=== PATIENT | female | born 1995 | race Caucasian/White ===

== ENCOUNTER 2019-06-24 14:35 | Emergency (ER) | payer OTHER ==
[2019-06-24] MEDS ORDERED: NORMAL SALINE 1000 ML 1,000 ML IV ONE (14:56)
--- NOTE | 2019-06-24 14:57 | ER Document Report ---
ED Medical Screen (RME) - General Stated Complaint: VAGINAL BLEEDING Time Seen by Provider: 06/24/19 14:51 Mode of Arrival: Ambulatory Information source: Patient Notes: Patient states that she had nausea vomiting and diarrhea this morning and then had vaginal bleeding with clots. Patient states that this would have been her first . Patient reports the bleeding has decreased and she is only spotting at this time. Patient does complain of feeling dizzy. Patient does report lower pelvic cramping. I have greeted and performed a rapid initial assessment of this patient. A comprehensive ED assessment and evaluation of the patient, analysis of test results and completion of the medical decision making process will be conducted by additional ED providers. - Related Data Allergies/Adverse Reactions: Penicillins Allergy (Verified 06/24/19 14:50) Physical Exam - Vital signs Vitals: Temp Pulse Resp BP Pulse Ox 99.2 F 108 H 14 130/72 H 97 06/24/19 14:39 06/24/19 14:39 06/24/19 14:39 06/24/19 14:39 06/24/19 14:39 - Abdominal Tenderness: Tender - Lower pelvic Course - Vital Signs Vital signs: Temp Pulse Resp BP Pulse Ox 99.2 F 108 H 14 130/72 H 97 06/24/19 14:39 06/24/19 14:39 06/24/19 14:39 06/24/19 14:39 06/24/19 14:39
[2019-06-24 15:29] LABS: ABSOLUTE BASOPHILS # (AUTO) 0.1 10^3/uL (0.0-0.2); ABSOLUTE EOSINOPHILS # (AUTO) 0.1 10^3/uL (0.0-0.6); ABSOLUTE LYMPHOCYTES (AUTO) 1.5 10^3/uL (0.5-4.7); ABSOLUTE MONOCYTES (AUTO) 0.6 10^3/uL (0.1-1.4); ABSOLUTE NEUT (AUTO) 7.6 10^3/uL (1.7-8.2); EOSINOPHILS % (AUTO) 0.6 % (0-6); HEMOGLOBIN 15.6 g/dL (12.0-15.5); MEAN CORPUSCULAR HGB CONC 35.4 g/dL (32.0-36.0); MEAN CORPUSCULAR VOLUME 88 fl (80-97); MONOCYTES % (AUTO) 6.2 % (3-13); PLATELET COUNT 290 10^3/uL (150-450); RED BLOOD COUNT 5.02 10^6/uL (3.72-5.28); RED CELL DISTRIBUTION WIDTH 13.1 % (11.5-14.0); SEGMENTED NEUTROPHILS % (AUTO) 77.2 % (42-78); TOTAL CELLS COUNTED % (AUTO) 100 %; WHITE BLOOD COUNT 9.8 10^3/uL (4.0-10.5)
[2019-06-24] MEDS ORDERED: MORPHINE SULFATE 10 MG/ML INJ IV ONE (15:38)
[2019-06-24] MEDS ORDERED: ONDANSETRON HCL INJ/PF 4 MG/2 ML SDV IV ONE (15:38)
[2019-06-24 15:43] LABS: ALBUMIN 4.8 g/dL (3.5-5.0); ALKALINE PHOSPHATASE 100 U/L (38-126); ANION GAP 10 (5-19); ASPARTATE AMINO TRANSFERASE 24 U/L (14-36); BILIRUBIN,TOTAL 0.5 mg/dL (0.2-1.3); BLOOD UREA NITROGEN 9 mg/dL (7-20); CALCIUM 9.8 mg/dL (8.4-10.2); CARBON DIOXIDE 24 mmol/L (22-30); CHLORIDE 104 mmol/L (98-107); GLUCOSE 100 mg/dL (75-110); POTASSIUM 4.3 mmol/L (3.6-5.0)
--- NOTE | 2019-06-24 15:46 | RADIOLOGY REPORT (SQ) ---
EXAM DESCRIPTION: U/S OB TRANSVAGINAL W/O DOP IMAGES COMPLETED DATE/TIME: 06/24/2019 3:35 pm REASON FOR STUDY: pelvic pain, vag bleeding COMPARISON: None. TECHNIQUE: Transvaginal static and realtime grayscale images acquired of the pelvis. Additional denisse cted spectral and color Doppler images recorded. All images stored on PACs. CLINICAL AGE: 7 week 1 day. BHCG: Not available. LIMITATIONS: None. FINDINGS: UTERUS: No visualized intrauterine . RIGHT ADNEXA: Normal ovary with normal vascular flow. No adnexal free fluid. No adnexal masses. LEFT ADNEXA: Ovary not identified due to poor acoustical window. No adnexal free fluid. No adnexal masses. FREE FLUID: None. OTHER: No other significant finding. IMPRESSION: NO VISUALIZED INTRA- OR EXTRAUTERINE . bHCG LEVEL NOT AVAILABLE FOR CORRELATION WITH US FINDINGS. ECTOPIC CANNOT BE EXCLUDED. FOLLOW-UP ULTRASOUND AND SERIAL BHCG LEVELS STRONGLY RECOMMENDED TO ACCURATELY ASSESS STATU S. TECHNICAL DOCUMENTATION: JOB ID: [id number] 2010 [employer]- All Rights Reserved Reading location - IP/workstation name: [email or web address]
[2019-06-24 16:05] LABS: APPEARANCE,URINE CLEAR; BILIRUBIN,URINE NEGATIVE (NEGATIVE); COLOR,URINE STRAW; GLUCOSE, URINE NEGATIVE (NEGATIVE); KETONES,URINE NEGATIVE (NEGATIVE); LEUKOCYTE ESTERASE,URINE NEGATIVE (NEGATIVE); NITRITE,URINE NEGATIVE (NEGATIVE); PROTEIN,URINE NEGATIVE (NEGATIVE); URINE SPECIFIC GRAVITY 1.002; UROBILINOGEN,URINE NEGATIVE mg/dL (<2.0)
--- NOTE | 2019-06-24 16:12 | ER Document Report ---
Entered by MICHELLE MONTEMAYOR SCRIBE 06/24/19 1537 Acting as scribe for:SONY RAMOS MD ED GI/ - General Chief Complaint: Vaginal Bleeding Stated Complaint: VAGINAL BLEEDING Time Seen by Provider: 06/24/19 14:51 [facility]: [facility] [[facility]] - Follow up as needed Mode of Arrival: Ambulatory Information source: Patient Notes: This 24-year-old female patient comes emergency room complaining of nausea vomiting diarrhea that started about 10 AM this morning when she woke up. She also was having heavy vaginal bleeding with clots. She does complaining of feeling a little dizzy. She is complaining of pain in the right lower quadrant of her abdomen. She states she felt dizzy with nauseousness yesterday. Patient's last menstrual period was about 8 weeks ago, she states she is normally regular with her menstrual periods. She has not done a test. - Related Data Allergies/Adverse Reactions: Penicillins Allergy (Verified 06/24/19 14:50) Home Medications: prozac Past Medical History - General Information source: Patient - Social History Smoking Status: Current Every Day Smoker Cigarette use (# per day): Yes Chew tobacco use (# tins/day): No Frequency of alcohol use: None Drug Abuse: None Lives with: Family Family History: Reviewed & Not Pertinent Patient has suicidal ideation: No Patient has homicidal ideation: No Psychiatric Medical History: Reports: Hx Depression Surgical Hx: Negative Review of Systems - Review of Systems Constitutional: No symptoms reported EENT: No symptoms reported Cardiovascular: No symptoms reported Respiratory: No symptoms reported Gastrointestinal: See HPI, Abdominal pain, Diarrhea, Nausea, Vomiting Genitourinary: No symptoms reported Female Genitourinary: See HPI, Last menstrual period - "end of apr early april", Vaginal bleeding Musculoskeletal: No symptoms reported Skin: No symptoms reported Hematologic/Lymphatic: No symptoms reported Neurological/Psychological: No symptoms reported -: Yes All other systems reviewed and negative Physical Exam - Vital signs Vitals: Temp Pulse Resp BP Pulse Ox 99.2 F 108 H 14 130/72 H 97 06/24/19 14:39 06/24/19 14:39 06/24/19 14:39 06/24/19 14:39 06/24/19 14:39 - General General appearance: Appears well, Alert In distress: Mild - HEENT Head: Normocephalic, Atraumatic Eyes: Normal Pupils: PERRL - Respiratory Respiratory status: No respiratory distress Breath sounds: Normal - Cardiovascular Rhythm: Regular Heart sounds: Normal auscultation Murmur: No - Abdominal Inspection: Normal Bowel sounds: Normal Tenderness: Tender - Very tender in the right lower quadrant pelvic region near the midline. Palpating in the left lower quadrant and suprapubic region causes pain in the right lower quadrant area.. No: Guarding, Rebound - Back Back: Normal - Extremities General upper extremity: Normal inspection General lower extremity: Normal inspection - Neurological Neuro grossly intact: Yes - Psychological Associated symptoms: Normal mood, Flat affect - Skin Skin Temperature: Warm Skin Moisture: Dry Skin Color: Normal Course - Vital Signs Vital signs: Temp Pulse Resp BP Pulse Ox 98.5 F 108 H 18 96/60 L 98 06/24/19 16:00 06/24/19 14:39 06/24/19 19:00 06/24/19 17:23 06/24/19 19:00 - Laboratory Result Diagrams: 06/24/19 15:00 06/24/19 15:00 Laboratory results interpreted by me: 06/24/19 06/24/19 15:00 15:00 Hgb 15.6 H Urine Blood MODERATE H - Diagnostic Test Radiology reviewed: Image reviewed, Reports reviewed - Transvaginal ultrasound is unremarkable. CT scan of the abdomen pelvis with IV contrast is unremarkable, specifically a normal appendix. Discharge - Discharge Clinical Impression: Pelvic pain, Anovulatory cycle, Painful menstruation, Nausea, vomiting and diarrhea Condition: Stable Disposition: HOME, SELF-CARE Additional Instructions: Gastroenteritis: You most likely have gastroenteritis. This is an irritation of the stomach and intestinal tract. It's usually caused by a virus, but can also be caused by bacteria, toxins that cause food poisoning, or excessive alcohol intake. Symptoms may include fever, painful abdominal cramps, nausea, vomiting, and diarrhea. Start with small amounts (two to six ounces) of clear liquids (soft drinks, herb teas, broth, etc). Try to take fluids frequently even if you are vomiting, to prevent dehydration. When liquids are being consumed successfully, advance to small amounts of bland food (mashed potato, toast) for 6 - 12 hours. Gastroenteritis rarely requires medication. It goes away by itself. Use good handwashing so you don't spread germs. Wash underwear in very hot water. If symptoms are severe, talk to the doctor. Call your physician if blood appears in your vomitus or stool, if vomiting lasts longer than 24 hours, if the abdominal pain worsens or becomes localized to one area, or if you develop high fever. Anovulatory cycle with painful menstrual period: You probably did not have a period last month due to what is known as an anovulatory cycle. Your period that started today is most likely heavier and more painful than usual. Drink cool clear liquids today and stay hydrated. Take Tylenol and ibuprofen or Aleve for pelvic pain if needed. Follow-up with your primary care provider if not improving. RETURN TO THE EMERGENCY ROOM IF ANY NEW OR WORSENING SYMPTOMS. Referrals: [facility] [[facility]] - Follow up as needed I personally performed the services described in the documentation, reviewed and edited the documentation which was dictated to the scribe in my presence, and it accurately records my words and actions.
--- NOTE | 2019-06-24 17:03 | RADIOLOGY REPORT (SQ) ---
EXAM DESCRIPTION: CT ABD/PELVIS WITH IV ONLY IMAGES COMPLETED DATE/TIME: 06/24/2019 4:47 pm REASON FOR STUDY: RLQ abd pain COMPARISON: None. TECHNIQUE: CT scan of the abdomen and pelvis performed using helical scanning technique with dynamic intravenous contrast injection. No oral contrast. Images reviewed with lung, soft tissue, and bone windows. Reconstructed coronal and sagittal MPR images reviewed. Delayed images for evaluation of the urinary system also acquired. All images stored on PACS. All CT scanners at this facility use dose modulation, iterative reconstruction, and/or weight based d osing when appropriate to reduce radiation dose to as low as reasonably achievable (ALARA). [facility]: Dose Right [facility]: CareDose [facility]: Dose Right [facility]: Teradose 4D [facility]: [employer] CONTRAST TYPE AND DOSE: contrast/concentration: Isovue 350.00 mg/ml; Total Contrast Delivered: 67.0 ml; Total Saline Delivered: 65.0 ml RENAL FUNCTION: BUN 9 creatinine 0.64. RADIATION DOSE: CT Rad equipment meets quality standard of care and radiation dose reduction techniq ues were employed. CTDIvol: 5.8 - 6.9 mGy. DLP: 653 mGy-cm.. LIMITATIONS: None. FINDINGS: LOWER CHEST: No significant findings. No nodules or infiltrates. LIVER: Normal size. Small subcentimeter cyst. No masses. No dilated ducts. SPLEEN: Normal size. No focal lesions. PANCREAS: No masses. No significant calcifications. No adjacent inflammation or peripancreatic fluid collections. Pancreatic duct not dilated. GALLBLADDER: No identified stones by CT criteria. No inflammatory changes to suggest cholecystitis. ADRENAL GLANDS: No significant masses or asymmetry. RIGHT KIDNEY AND URETER: No solid masses. No significant calcifications. No hydronephrosis or hyd roureter. LEFT KIDNEY AND URETER: No solid masses. No significant calcifications. No hydronephrosis or hydr oureter. AORTA AND VESSELS: No aneurysm. No dissection. Renal arteries, SMA, celiac without stenosis. RETROPERITONEUM: No retroperitoneal adenopathy, hemorrhage or masses. BOWEL AND PERITONEAL CAVITY: No masses or inflammatory changes. No free fluid or peritoneal masses. APPENDIX: Normal. PELVIS: No mass. No free fluid. Normal bladder. ABDOMINAL WALL: No masses. No hernias. BONES: No significant or acute findings. Hardware in the lumbosacral spine. OTHER: No other significant finding. IMPRESSION: NO SIGNIFICANT OR ACUTE FINDING IN THE ABDOMEN OR PELVIS ON CT SCAN WITH IV CONTRAST. TECHNICAL DOCUMENTATION: JOB ID: [id number] Quality ID # [id number]: Final reports with documentation of one or more dose reduction techniques (e.g., Au tomated exposure control, adjustment of the mA and/or kV according to patient size, use of iterative reconstruction technique) 2010 [employer]- All Rights Reserved Reading location - IP/workstation name: [email or web address]
[2019-06-24 18:19] VITALS: BP 96/60
== END 2019-06-24 19:34 | disposition home or self-care (01) ==
LOC: ER 14:35
DX: R10.2 Pelvic and perineal pain (principal); N97.0 Female infertility associated with anovulation; N94.6 Dysmenorrhea, unspecified; R11.2 Nausea with vomiting, unspecified; R19.7 Diarrhea, unspecified; F17.210 Nicotine dependence, cigarettes, uncomplicated; Z88.0 Allergy status to penicillin
CPT/HCPCS: 99284; 96361; 96374; 96375; 86900; 86901; 36415; 84702; 85025; 80053; 81001; 76817; 74177; J2270; J2405; J7030

== ENCOUNTER 2019-11-26 17:33 | Emergency (ER) | payer OTHER ==
[2019-11-26] MEDS ORDERED: MORPHINE SULFATE 10 MG/ML INJ IV ONE ×3 (18:15→21:00)
[2019-11-26] MEDS ORDERED: DEXAMETHASONE SOD PHOS INJ 10 MG/1 ML VIAL IV ONE ×2 (18:15→20:30)
[2019-11-26] MEDS ORDERED: ONDANSETRON HCL INJ/PF 4 MG/2 ML SDV IV ONE ×2 (18:15→20:30)
--- NOTE | 2019-11-26 18:17 | ER Document Report ---
ED Medical Screen (RME) - General Chief Complaint: Back Pain Stated Complaint: BACK PAIN [facility] Provider: [facility] [[facility]] - Follow up as needed Notes: HPI: 24-year-old female with history of 2 prior back surgery secondary to fracture of the lower back while in the [employer] presenting for increasing weakness and severe pain in the lower back today. Patient states she has had intermittent worsening pain in the low back over the last 3 to 4 weeks. She is originally from [place] and is traveling to see family. No incontinence of urine or bowel but states that she was having difficulty driving today because she was having trouble stepping down on the gas on the brake. PHYSICAL EXAMINATION: Limited exam in triage. Unable to straight leg raise in the chair without significant pain in the left lower back. Mild tenderness across the left lower lumbar back on palpation. No saddle anesthesia on exam. able to fully extend both legs at the knees. discussed with Dr. Holliday I have greeted and performed a rapid initial assessment of this patient. A comprehensive ED assessment and evaluation of the patient, analysis of test results and completion of medical decision making process will be conducted by a n additional ED providers. - Related Data Allergies/Adverse Reactions: Penicillins Allergy (Verified 06/24/19 14:50) Home Medications: prozaac, propanolol, topamax Past Medical History - Social History Chew tobacco use (# tins/day): No Frequency of alcohol use: None Drug Abuse: None Neurological Medical History: Reports: Hx Migraine Psychiatric Medical History: Reports: Hx Depression Past Surgical History: Reports: Hx Orthopedic Surgery Physical Exam - Vital signs Vitals: Temp Pulse Resp BP Pulse Ox 98.5 F 95 18 108/79 99 11/26/19 17:44 11/26/19 17:44 11/26/19 17:44 11/26/19 17:44 11/26/19 17:44 Course - Vital Signs Vital signs: Temp Pulse Resp BP Pulse Ox 98.5 F 95 18 108/79 99 11/26/19 18:05 11/26/19 17:44 11/26/19 17:44 11/26/19 17:44 11/26/19 17:44 Doctor's Discharge - Discharge [facility]errals: [facility] [[facility]] - Follow up as needed
[2019-11-26 19:01] LABS: ABSOLUTE BASOPHILS # (AUTO) 0.1 10^3/uL (0.0-0.2); ABSOLUTE EOSINOPHILS # (AUTO) 0.1 10^3/uL (0.0-0.6); ABSOLUTE LYMPHOCYTES (AUTO) 2.2 10^3/uL (0.5-4.7); ABSOLUTE MONOCYTES (AUTO) 0.9 10^3/uL (0.1-1.4); ABSOLUTE NEUT (AUTO) 8.7 10^3/uL (1.7-8.2); EOSINOPHILS % (AUTO) 1.2 % (0-6); HEMATOCRIT 40.3 % (36.0-47.0); HEMOGLOBIN 13.4 g/dL (12.0-15.5); LYMPHOCYTES % (AUTO) 18.4 % (13-45); MEAN CORPUSCULAR HEMOGLOBIN 29.3 pg (27.0-33.4); MEAN CORPUSCULAR HGB CONC 33.4 g/dL (32.0-36.0); MEAN CORPUSCULAR VOLUME 88 fl (80-97); MONOCYTES % (AUTO) 7.1 % (3-13); PLATELET COUNT 312 10^3/uL (150-450); RED BLOOD COUNT 4.59 10^6/uL (3.72-5.28); RED CELL DISTRIBUTION WIDTH 13.5 % (11.5-14.0); SEGMENTED NEUTROPHILS % (AUTO) 72.3 % (42-78); TOTAL CELLS COUNTED % (AUTO) 100 %; WHITE BLOOD COUNT 12.1 10^3/uL (4.0-10.5)
[2019-11-26 19:03] LABS: APPEARANCE,URINE CLEAR; BILIRUBIN,URINE NEGATIVE (NEGATIVE); COLOR,URINE YELLOW; GLUCOSE, URINE NEGATIVE (NEGATIVE); KETONES,URINE NEGATIVE (NEGATIVE); LEUKOCYTE ESTERASE,URINE NEGATIVE (NEGATIVE); NITRITE,URINE NEGATIVE (NEGATIVE); PROTEIN,URINE NEGATIVE (NEGATIVE); URINE SPECIFIC GRAVITY 1.006; UROBILINOGEN,URINE NEGATIVE mg/dL (<2.0)
[2019-11-26 19:23] LABS: ALBUMIN 4.2 g/dL (3.5-5.0); ALKALINE PHOSPHATASE 93 U/L (38-126); ANION GAP 8 (5-19); ASPARTATE AMINO TRANSFERASE 21 U/L (14-36); BILIRUBIN,DIRECT 0.3 mg/dL (0.0-0.4); BILIRUBIN,TOTAL 0.3 mg/dL (0.2-1.3); BLOOD UREA NITROGEN 5 mg/dL (7-20); CALCIUM 9.1 mg/dL (8.4-10.2); CARBON DIOXIDE 27 mmol/L (22-30); CHLORIDE 104 mmol/L (98-107); GLUCOSE 180 mg/dL (75-110); POTASSIUM 3.9 mmol/L (3.6-5.0); TOTAL PROTEIN 6.9 g/dL (6.3-8.2)
--- NOTE | 2019-11-26 20:18 | RADIOLOGY REPORT (SQ) ---
EXAM DESCRIPTION: [facility]: MR LUMBAR SPINE WITHOUT IV CONTRAST CLINICAL HISTORY: 24 years Female; leg weakness, hx back surgery; TECHNIQUE: Noncontrast MRI lumbar spine. COMPARISON: CT abdomen pelvis 06/24/2019 FINDINGS: T12-L1 through L4-L5 disc levels are within normal limits. No central or foraminal stenosis. No focal herniation. L5-S1: Previous PLIF. There is artifact from bilateral pedicle screws as well as intervertebral spacer. No central or foraminal stenosis. No acute bone marrow edema or perivertebral soft tissue edema. No epidural fluid collections. No nerve root clumping or thickening. Conus medullaris is unremarkable. IMPRESSION: 1. Previous L5-S1 PLIF. 2. No acute findings. 3. No central or foraminal stenosis.
--- NOTE | 2019-11-26 20:25 | RADIOLOGY REPORT (SQ) ---
EXAM DESCRIPTION: X-RAY Lumbar Spine - Five views CLINICAL HISTORY: Back pain COMPARISON: MRI lumbar spine performed the same day. TECHNIQUE: Five views of the lumbar spine. FINDINGS: There are five lumbar-type vertebral bodies. Patient is status post instrumented maira and screw posterior spinal fusion at the L5-S1 level. The surgical hardware appears grossly intact. Evaluation of alignment demonstrates trace anterolisthesis L5 on S1. There is no loss of the vertebral body height. Intervertebral disc spaces at the nonoperative levels are well maintained. The paravertebral soft tissues are unremarkable. IMPRESSION: Postoperative changes at the L5-S1 level as detailed above. Please see MRI performed the same day for further evaluation of this patient.
--- NOTE | 2019-11-26 21:02 | ER Document Report ---
ED Neck/Back Problem - General Chief Complaint: Back Pain Stated Complaint: BACK PAIN Time Seen by Provider: 11/26/19 20:21 [facility]: [facility] [[facility]] - Follow up as needed Information source: Patient Notes: Patient presents complaining of worsening back pain for the past 3 to 4 weeks. Patient has a history of chronic low back pain and previous spinal fusion of the L5-S1 area. Patient states that her pain worsened today in which she had difficulty putting weight to her foot and was having difficulty in pushing the gas pedal in her vehicle. Patient states the symptoms lasted for about 20 minutes and then improved. Patient denies any urinary retention or incontinence. Patient denies any fever. Patient denies any new injury. - HPI Patient complains to provider of: Lower back Onset: Other - 4 weeks Onset: Chronic Timing: Still present Quality of pain: Sharp Pain Level: 5 Associated symptoms: Like prior neck/back pain, Lower back pain. denies: Fever Exacerbated by: Movement of trunk Relieved by: Nothing Similar symptoms previously: Yes Recently seen / treated by doctor: No - Related Data Allergies/Adverse Reactions: Penicillins Allergy (Verified 06/24/19 14:50) Home Medications: prozaac, propanolol, topamax Past Medical History - General Information source: Patient - Social History Smoking Status: Current Every Day Smoker Chew tobacco use (# tins/day): No Frequency of alcohol use: None Drug Abuse: None Occupation: plastering contractor Lives with: Spouse/Significant other Family History: Reviewed & Not Pertinent Neurological Medical History: Reports: Hx Migraine Musculoskeletal Medical History: Reports Hx Arthritis - Chronic back pain Psychiatric Medical History: Reports: Hx Depression Past Surgical History: Reports: Hx Orthopedic Surgery Review of Systems - Review of Systems Constitutional: No symptoms reported. denies: Fever, Recent illness EENT: No symptoms reported Cardiovascular: No symptoms reported Respiratory: No symptoms reported Gastrointestinal: No symptoms reported. denies: Vomiting Genitourinary: No symptoms reported. denies: Dysuria, Incontinence, Retention Female Genitourinary: No symptoms reported. denies: Musculoskeletal: Back pain Skin: No symptoms reported Hematologic/Lymphatic: No symptoms reported Neurological/Psychological: No symptoms reported Physical Exam - Vital signs Vitals: Temp Pulse Resp BP Pulse Ox 98.5 F 95 18 108/79 99 11/26/19 17:44 11/26/19 17:44 11/26/19 17:44 11/26/19 17:44 11/26/19 17:44 - Notes Notes: PHYSICAL EXAMINATION: GENERAL: Well-appearing, well-nourished and in no acute distress. HEAD: Atraumatic, normocephalic. EYES: sclera clear, anicteric, conjunctiva are normal. ENT: nares patent, Moist mucous membranes. NECK: Normal range of motion, supple no lymphadenopathy LUNGS: respirations unlabored HEART: Regular rate and rhythm without murmurs EXTREMITIES: Normal range of motion, no pitting or edema. No cyanosis. Gait normal, pt ambulates without difficulty BACK: Lower lumbar paraspinal tenderness, no midline tenderness, no deformities or step-offs. No CVA tenderness. NEUROLOGICAL: Cranial nerves grossly intact. Normal speech, No saddle anesthesia. Negative straight leg test bilaterally PSYCH: Normal mood, normal affect. SKIN: Warm, Dry, normal turgor, no rashes or lesions noted. Course - Re-evaluation Re-evalutation: 11/26/19 21:02 The patient presents with low back pain without signs of spinal cord compression, cauda equina syndrome, infection, aneurysm, or other serious etiology. The patient is neurologically intact. Given the extremely risk of these diagnoses further testing and evaluation for these possibilities does not appear to be indicated at this time. Patient has been instructed to return if the symptoms worsen or change in any way. - Vital Signs Vital signs: Temp Pulse Resp BP Pulse Ox 98.3 F 71 14 112/73 98 11/26/19 21:46 11/26/19 21:46 11/26/19 21:46 11/26/19 21:46 11/26/19 21:46 - Laboratory Result Diagrams: 11/26/19 18:43 11/26/19 18:43 Laboratory results interpreted by me: 11/26/19 11/26/19 11/26/19 18:43 18:43 18:43 WBC 12.1 H Absolute Neuts (auto) 8.7 H BUN 5 L Glucose 180 H Urine Blood SMALL H 11/26/19 21:02 Labs- All tests 24 hr 11/26/19 11/26/19 11/26/19 18:43 18:43 18:43 WBC 12.1 H RBC 4.59 Hgb 13.4 Hct 40.3 MCV 88 MCH 29.3 MCHC 33.4 RDW 13.5 Plt Count 312 Lymph % (Auto) 18.4 [place] % (Auto) 7.1 Eos % (Auto) 1.2 Baso % (Auto) 1.0 Absolute Neuts (auto) 8.7 H Absolute Lymphs (auto) 2.2 Absolute Monos (auto) 0.9 Absolute Eos (auto) 0.1 Absolute Basos (auto) 0.1 Seg Neutrophils % 72.3 Sodium 139.1 Potassium 3.9 Chloride 104 Carbon Dioxide 27 Anion Gap 8 BUN 5 L Creatinine 0.59 Est GFR ( Amer) > 60 Est GFR (MDRD) Non-Af > 60 Glucose 180 H Calcium 9.1 Total Bilirubin 0.3 Direct Bilirubin 0.3 Neonat Total Bilirubin Not Reportable Neonat Direct Bilirubin Not Reportable Neonat Indirect Bili Not Reportable AST 21 ALT 16 Alkaline Phosphatase 93 Total Protein 6.9 Albumin 4.2 Urine Color YELLOW Urine Appearance CLEAR Urine pH 7.0 Ur Specific Combes 1.006 Urine Protein NEGATIVE Urine Glucose (UA) NEGATIVE Urine Ketones NEGATIVE Urine Blood SMALL H Urine Nitrite NEGATIVE Urine Bilirubin NEGATIVE Urine Urobilinogen NEGATIVE Ur Leukocyte Esterase NEGATIVE Urine WBC (Auto) 2 Urine Bacteria (Auto) 2+ Squamous Epi Cells Auto <1 Urine Mucus (Auto) RARE Urine Ascorbic Acid NEGATIVE Urine HCG, Qual NEGATIVE - Diagnostic Test Radiology reviewed: Reports reviewed Discharge - Discharge Clinical Impression: Low back pain Qualifiers: Chronicity: unspecified Back pain laterality: bilateral Sciatica presence: unspecified whether sciatica present Qualified Code(s): M54.5 - Low back pain Condition: Stable Disposition: HOME, SELF-CARE Instructions: Ice Packs ([facility]), Low Back Pain ([facility]), Oral Narcotic Medication ([facility]) Additional Instructions: Return immediately for any new or worsening symptoms Followup with your primary care provider, call tomorrow to make a followup appointment Follow-up with your pain management doctor as well as your orthopedic surgeon for recheck Prescriptions: Lidocaine [Lidoderm 5% (700 mg) Transdermal Patch] 1 patch TP DAILY PRN #10 adh..patch PRN Reason: Oxycodone HCl/Acetaminophen [Percocet 5-325 mg Tablet] 1 tab PO ASDIR PRN #15 tablet PRN Reason: [facility]errals: [facility] [[facility]] - Follow up as needed
[2019-11-26] MEDS ORDERED: LIDOCAINE 5% (700 MG) TRANSDERMAL ADH..PATCH TP ONE (21:34)
[2019-11-26 21:48] VITALS: BP 112/73
== END 2019-11-26 21:49 | disposition home or self-care (01) ==
LOC: ER 17:33
DX: M54.5 Low back pain (principal); F17.200 Nicotine dependence, unspecified, uncomplicated; Z88.0 Allergy status to penicillin
CPT/HCPCS: 96376; 99285; 96374; 96375; 36415; 85025; 81025; 80053; 81001; 72148; 72110; J2270; J2405; J1100